=== PATIENT | male | born 1985 ===

== ENCOUNTER 2018-03-28 01:22 | Emergency (ER) | payer SELFPAY ==
[2018-03-28 01:59] VITALS: BMI 22.4
[2018-03-28 02:04] VITALS: BP 118/89; PULSE 94; RESP 18; TEMP 98.4; O2SAT 96
[2018-03-28] MEDS ORDERED: Lidocaine 1% (10 ml) Inj INFIL ONE (02:35)
[2018-03-28] MEDS ORDERED: Tdap Vaccine 0.5 ml Vial (10-64 yrs) IM ONE ×2 (02:35→03:28)
[2018-03-28] MEDS ORDERED: Lidocaine 1% Inj (20ml) ONE (03:28)
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
== END 2018-03-28 04:31 | disposition home or self-care (01) ==
LOC: H.ER 01:22
DX: S61.512A Laceration without foreign body of left wrist, initial encounter (principal); S61.215A Laceration without foreign body of left ring finger without damage to nail, initial encounter; X99.1XXA Assault by knife, initial encounter; Y92.89 Other specified places as the place of occurrence of the external cause